=== PATIENT | male | born 1965 | race Caucasian/White ===

== ENCOUNTER 2017-04-15 19:44 | Emergency (ER) | payer OTHER ==
[~2017-04-15] VITALS: Ht 188 cm; Wt 86.2 kg
--- NOTE | 2017-04-15 20:06 | ER Report ---
History and Physical Time Seen By MD: 20:03 Hx. of Stated Complaint: N/V STARTED TODAY, FLU LIKE SYMPTOMS, DIZZY HPI/ROS CHIEF COMPLAINT: dizziness, vomiting HISTORY OF PRESENT ILLNESS: This is a 51 year old male. He had dizziness that started earlier this morning. This is a vertigo feeling. Worsens with position change. Worsens when his eyes are open. His noted that he had twitching of his eyes as well. Nausea and vomiting started after the dizziness. He had an episode of diarrhea as well. He has had some congestion over the last week or so ; has been using over the counter cold medicine and Mucinex. Mild cough. No shortness of breath. Normal urinary function. Diffuse muscle aches. No rashes. REVIEW OF SYSTEMS: As above. Allergies: Coded Allergies: No Known Drug Allergies (Unverified , 04/15/17) Home Meds Active Scripts Promethazine Hcl (PROMETHAZINE HCL) 25 Mg Tablet, 25 MG PO Q8H Y for NAUSEA/ VOMITING, #20 TAB 0 Refills Prov:MICHELE MARTE MD 04/15/17 Ondansetron (ZOFRAN ODT) 4 Mg Tab.rapdis, 4 MG PO Q6H Y for NAUSEA/VOMITING, # 20 TAB.AILEEN 0 Refills Prov:MICHELE MARTE MD 04/15/17 Diazepam (VALIUM) 2 Mg Tablet, 2 MG PO Q6H Y for DIZZINESS, #10 TAB 0 Refills Prov:MICHELE MARTE MD 04/15/17 Meclizine Hcl (MECLIZINE HCL) 25 Mg Tablet, 25 MG PO Q8H Y for DIZZINESS, #20 TAB 0 Refills Prov:MICHELE MARTE MD 04/15/17 Scopolamine (TRANSDERM-SCOP) 1.5 Mg Patch, 1.5 MG TD Q3D Y for DIZZINESS, #5 PATCH 0 Refills Prov:MICHELE MARTE MD 04/15/17 Reviewed Nurses Notes: Yes Hx Substance Use Disorder: No Hx Alcohol Use: No Constitutional Vital Sign - Last 24 Hours 04/15/17 04/15/17 04/15/17 04/15/17 19:48 20:00 20:05 20:10 Temp 97.7 Pulse 55 59 80 67 Resp 14 B/P (MAP) 133/82 120/80 (93) Pulse Ox 94 96 96 97 04/15/17 04/15/17 04/15/17 04/15/17 20:15 20:20 20:25 20:30 Pulse 45 63 42 48 Resp 17 23 26 B/P (MAP) 114/81 (92) Pulse Ox 98 90 97 91 04/15/17 04/15/17 04/15/17 04/15/17 20:35 20:40 20:45 20:50 Pulse 60 45 57 46 Resp 21 10 14 Pulse Ox 95 92 97 04/15/17 04/15/17 04/15/17 04/15/17 20:55 21:00 21:05 21:10 Pulse 54 45 47 57 Resp 19 14 14 58 B/P (MAP) 112/76 (88) Pulse Ox 93 94 95 93 04/15/17 04/15/17 04/15/17 04/15/17 21:15 21:20 21:25 21:30 Pulse 71 51 58 51 Resp 23 15 17 15 B/P (MAP) 108/76 (87) Pulse Ox 95 96 95 94 04/15/17 04/15/17 04/15/17 04/15/17 21:35 21:40 21:50 21:55 Pulse 55 74 58 62 Resp 14 16 15 13 Pulse Ox 94 94 94 94 04/15/17 04/15/17 04/15/17 04/15/17 22:00 22:15 22:30 22:45 Pulse 61 62 66 70 Resp 14 12 14 B/P (MAP) 110/71 (84) 114/71 (85) Pulse Ox 94 92 92 Physical Exam General Appearance: The patient is alert. Acute distress due to vomiting and dizziness. Ill appearing. Eyes: Pupils are equal, round. Reactive to light. No pallor, injection or icterus. Extraocular movements are intact. Horizontal nystagmus, fast beat to the left. ENT: Mucous membranes are moist. Normal oral mucosa. Posterior oropharynx is normal. Nasal mucosa red and inflamed. Tympanic membranes show effusions bilaterally, but no redness or bulging. Neck: Supple and non tender. No lymphadenopathy. Respiratory: Lungs are clear to auscultation. Cardiovascular: Regular rate and rhythm. No murmurs, gallops or rubs. Normal capillary refill. No edema. Gastrointestinal: Abdomen is soft and non tender. Nondistended. Normal active bowel sounds. Neurological: Alert and oriented x3. Cranial nerves II through XII show no acute deficits on my exam. No focal neurologic deficits in the extremities. Skin: Warm and dry. No rashes. DIFFERENTIAL DIAGNOSIS: After history and physical exam, differential diagnosis was considered for dizziness including but not limited to peripheral and central causes of vertigo, orthostatic causes including dehydration, and blood loss. Medical Decision Making Data Points Result Diagram: 04/15/17 1950 04/15/17 [facility] Laboratory Hematology Test 04/15/17 19:50 Red Blood Count 5.25 M/uL (4.00-5.60) Mean Corpuscular Volume 91.0 fL (80.0-96.0) Mean Corpuscular Hemoglobin 31.0 pg (26.0-33.0) Mean Corpuscular Hemoglobin Concent 34.0 g/dL (32.0-36.0) Red Cell Distribution Width 13.1 % (11.5-14.5) Mean Platelet Volume 9.1 fL (7.2-11.1) Neutrophils (%) (Auto) 40.3 % (39.4-72.5) Lymphocytes (%) (Auto) 47.3 % (17.6-49.6) Monocytes (%) (Auto) 9.5 % (4.1-12.4) Eosinophils (%) (Auto) 2.5 % (0.4-6.7) Basophils (%) (Auto) 0.4 % (0.3-1.4) Nucleated RBC Relative Count (auto) 0.1 /100WBC Neutrophils # (Auto) 3.2 K/uL (2.0-7.4) Lymphocytes # (Auto) 3.8 K/uL (1.3-3.6) Monocytes # (Auto) 0.8 K/uL (0.3-1.0) Eosinophils # (Auto) 0.2 K/uL (0.0-0.5) Basophils # (Auto) 0.0 K/uL (0.0-0.1) Nucleated RBC Absolute Count (auto) 0.00 K/uL Sodium Level 139 mmol/L (137-145) Potassium Level 3.1 mmol/L (3.5-5.0) Chloride Level 103 mmol/L (98-107) Carbon Dioxide Level 24 mmol/L (22-30) Blood Urea Nitrogen 15 mg/dl (9-21) Creatinine 1.00 mg/dl (0.66-1.25) Glomerular Filtration Rate Calc > 60.0 Random Glucose 108 mg/dl (75-110) Calcium Level 8.9 mg/dl (8.4-10.2) Total Bilirubin 0.5 mg/dl (0.2-1.3) Aspartate Amino Transf (AST/SGOT) 49 U/L (0-35) Alanine Aminotransferase (ALT/SGPT) 54 U/L (0-56) Alkaline Phosphatase 57 U/L (0-126) Total Protein 7.2 gm/dl (6.3-8.2) Albumin 4.2 g/dl (3.5-5.0) Influenza Virus Type A (PCR) Negative (NEGATIVE) Influenza Virus Type B (PCR) Negative (NEGATIVE) Chemistry Test 04/15/17 19:50 White Blood Count 8.0 k/uL (4.5-11.0) Red Blood Count 5.25 M/uL (4.00-5.60) Hemoglobin 16.3 g/dL (14.0-18.0) Hematocrit 47.8 % (42.0-52.0) Mean Corpuscular Volume 91.0 fL (80.0-96.0) Mean Corpuscular Hemoglobin 31.0 pg (26.0-33.0) Mean Corpuscular Hemoglobin Concent 34.0 g/dL (32.0-36.0) Red Cell Distribution Width 13.1 % (11.5-14.5) Platelet Count 208 K/uL (150-450) Mean Platelet Volume 9.1 fL (7.2-11.1) Neutrophils (%) (Auto) 40.3 % (39.4-72.5) Lymphocytes (%) (Auto) 47.3 % (17.6-49.6) Monocytes (%) (Auto) 9.5 % (4.1-12.4) Eosinophils (%) (Auto) 2.5 % (0.4-6.7) Basophils (%) (Auto) 0.4 % (0.3-1.4) Nucleated RBC Relative Count (auto) 0.1 /100WBC Neutrophils # (Auto) 3.2 K/uL (2.0-7.4) Lymphocytes # (Auto) 3.8 K/uL (1.3-3.6) Monocytes # (Auto) 0.8 K/uL (0.3-1.0) Eosinophils # (Auto) 0.2 K/uL (0.0-0.5) Basophils # (Auto) 0.0 K/uL (0.0-0.1) Nucleated RBC Absolute Count (auto) 0.00 K/uL Glomerular Filtration Rate Calc > 60.0 Calcium Level 8.9 mg/dl (8.4-10.2) Total Bilirubin 0.5 mg/dl (0.2-1.3) Aspartate Amino Transf (AST/SGOT) 49 U/L (0-35) Alanine Aminotransferase (ALT/SGPT) 54 U/L (0-56) Alkaline Phosphatase 57 U/L (0-126) Total Protein 7.2 gm/dl (6.3-8.2) Albumin 4.2 g/dl (3.5-5.0) Influenza Virus Type A (PCR) Negative (NEGATIVE) Influenza Virus Type B (PCR) Negative (NEGATIVE) EKG/Imaging EKG Interpretation 12 lead EKG: Rhythm: [normal sinus rhythm] [[place]:] [normal] [QRS:] [normal] ST segments: [normal] [ ] ED Course/Re-evaluation Clinical Indication for ER IV: Hydration, IV Access ED Course Labs showed a lower potassium level. EKG was obtained due to this and bradycardia. Patient had Zofran and a liter of normal saline started. Meclizine 25mg oral dose was given. Started 20mEq KCl as well as a rider. Gave a 2nd liter of normal saline. Later, gave Phenergan 12.5mg IV and he was finally able to sleep. He was feeling much better upon awakening. He is still having some vertigo and some horizontal nystagmus, especially after moving. Gave a take home pack of Zofran and some Valium to use for dizziness. Prescriptions as noted below in the instructions with various options available to help with the vertigo and nausea. Discussed with he and his that this appears to be a viral process causing labyrinthitis and to continue his Mucinex and decongestant as well. Rest and fluids over the next few days as able. Decision to Disposition Date: Apr 15, 2017 Decision to Disposition Time: 22:38 Depart Departure Latest Vital Signs Vital Signs Date Time Temp Pulse Resp B/P (MAP) Pulse Ox O2 Delivery O2 Flow Rate FiO2 04/15/17 22:45 70 04/15/17 22:30 14 114/71 (85) 92 04/15/17 19:48 97.7 Impression: Primary Impression: Labyrinthitis, acute viral Additional Impressions: Vertigo Hypokalemia Bradycardia Condition: Improved Disposition: HOME OR SELF-CARE New Scripts Promethazine Hcl (PROMETHAZINE HCL) 25 Mg Tablet 25 MG PO Q8H Y for NAUSEA/VOMITING, #20 TAB 0 Refills Prov: MICHELE MARTE MD 04/15/17 Ondansetron (ZOFRAN ODT) 4 Mg Tab.rapdis 4 MG PO Q6H Y for NAUSEA/VOMITING, #20 TAB.AILEEN 0 Refills Prov: MICHELE MARTE MD 04/15/17 Diazepam (VALIUM) 2 Mg Tablet 2 MG PO Q6H Y for DIZZINESS, #10 TAB 0 Refills Prov: MICHELE MARTE MD 04/15/17 Meclizine Hcl (MECLIZINE HCL) 25 Mg Tablet 25 MG PO Q8H Y for DIZZINESS, #20 TAB 0 Refills Prov: MIHCELE MARTE MD 04/15/17 Scopolamine (TRANSDERM-SCOP) 1.5 Mg Patch 1.5 MG TD Q3D Y for DIZZINESS, #5 PATCH 0 Refills Prov: MICHELE MARTE MD 04/15/17 Patient Instructions: Labyrinthitis (ED), Vertigo (ED) Additional Instructions: You appear to have a viral upper respiratory infection that has caused an inner ear response called labyrinthitis. This causes the vertigo sensation (dizziness or spinning) that you are feeling which in turn causes the nausea/vomiting. There are no medicines that will make this go away quicker, and will need to resolve over time. Rest and increase fluid intake can help. Keep taking the Mucinex and keep taking over the counter decongestant as well. For the dizziness you can try the following medicines: Meclizine 25mg every 8 hours as needed. This medicine can cause drowsiness. Scopolamine patch applied to the skin behind the ear every 3 days. Valium 2mg tablets every 6 hours as needed for severe dizziness. This medicine can cause drowsiness as well. For the nausea or vomiting: If we can control the dizziness, then the vomiting/nausea should improve. You can take Zofran 4mg oral dissolving tablets, take one every 4 hours as needed for nausea. This should not make you drowsy. Phenergan 25mg every 8 hours as needed for severe nausea/vomiting. This medicine will make you very sleepy as well. Problem Qualifiers Primary Impression: Labyrinthitis, acute viral Laterality: left Qualified Codes: H83.02 - Labyrinthitis, left ear MICHELE MARTE MD Apr 15, 2017 20:06
[2017-04-15] MEDS ORDERED: ONDANSETRON 4 MG/2 ML VIAL IVP ONE (20:10)
[2017-04-15] MEDS ORDERED: NS(*) 0.9% 1000 ML BAG 1,000 ML IV ONE ×2 (20:10→20:30)
[2017-04-15] MEDS ORDERED: MECLIZINE HCL 25 MG TAB PO ONE (20:10)
[2017-04-15 20:14] LABS: PLATELET COUNT, AUTOMATED 208 K/uL (150-450)
[2017-04-15] MEDS ORDERED: KCL (*) 20 MEQ/100 ML PREMIX 100 ML IV ONE (20:30)
[2017-04-15] MEDS ORDERED: PROMETHAZINE 25 MG/ML 1 ML AMP IVP ONE (20:35)
--- NOTE | 2017-04-15 20:56 | EKG ---
FACILITY: [facility] - [place] PATIENT NAME: SYDNEE GUPTA : [id number] MR: [id number] V: [id number] EXAM DATE: ORDERING PHYSICIAN: MICHELE MARTE TECHNOLOGIST: CORRIE Hunt Reason : BRADYCARDIA Blood Pressure : / mmHG Vent. Rate : 043 BPM Atrial Rate : 043 BPM P-R Int : 176 ms QRS Dur : 116 ms QT Int : 510 ms P-R-T Axes : 062 067 036 degrees QTc Int : 430 ms Sinus bradycardia with premature atrial complex Probable left atrial enlargement Incomplete right bundle branch block Abnormal ECG No previous ECGs available Confirmed by SANTOS MACK [id number] on 04/16/2017 5:28:10 AM Referred By: Confirmed By:SANTOS MACK
[2017-04-15 22:30] VITALS: BP 114/71
[2017-04-15] MEDS ORDERED: DIAZ2TAB72 PO (22:42)
[2017-04-15] MEDS ORDERED: MECL25TA9 PO (22:42)
[2017-04-15] MEDS ORDERED: SCOT TD (22:42)
[2017-04-15] MEDS ORDERED: PROM-110 PO (22:42)
[2017-04-15] MEDS ORDERED: ONDA4TAB PO (22:42)
[2017-04-15] MEDS ORDERED: ONDANSETRON 4 MG ODT TH SL ONE (23:10)
[2017-04-15] MEDS ORDERED: DIAZEPAM 5 MG TAB TH 2 TAB/BOTTLE PO ONE (23:10)
== END 2017-04-15 23:06 | disposition home or self-care (01) ==
LOC: ER 19:48
DX: H83.02 Labyrinthitis, left ear (principal); R42 Dizziness and giddiness; E87.6 Hypokalemia; R00.1 Bradycardia, unspecified
CPT/HCPCS: 85025; 87502; 93005; 99284; J2405; J2550; J3480; J7030; J8597; 82040; 82247; 82310; 82374; 82435; 82565; 82947; 84075; 84132; 84155; 84295; 84450; 84460; 84520